=== PATIENT | female | born 1975 | race Caucasian/White ===

== ENCOUNTER 2017-11-08 05:39 | Inpatient (IN) | payer BC ==
[2017-11-08] MEDS: LACTATED RINGER'S 1,000 ML IV ×3 (07:26→20:18)
[2017-11-08] MEDS ORDERED: MIDAZOLAM 1 MG/ML 2 ML INJ (07:28)
[2017-11-08] MEDS ORDERED: HYDROmorphONE 1 MG/5 ML IV SYRINGE IV (07:30)
[2017-11-08] MEDS ORDERED: FENTAnyl 50 MCG/ML VIAL IV ×3 (07:30)
[2017-11-08] MEDS ORDERED: MEPERIDINE 25 MG INJ IV (07:30)
[2017-11-08] MEDS ORDERED: DIPHENHYDRAMINE 50 MG INJ IV (07:30)
[2017-11-08] MEDS ORDERED: PROCHLORPERAZINE 10 MG INJ IV (07:30)
[2017-11-08] MEDS ORDERED: CEFAZOLIN 1 GM INJ (07:42)
[2017-11-08] MEDS ORDERED: FAMOTIDINE 20 MG INJ (07:42)
[2017-11-08] MEDS ORDERED: ROCURONIUM 50 MG INJ (07:42)
[2017-11-08] MEDS ORDERED: DEXAMETHASONE 4 MG/ML 1 ML INJ (07:42)
[2017-11-08] MEDS ORDERED: ONDANSETRON 4 MG INJ (07:42)
[2017-11-08] MEDS ORDERED: LIDOCAINE 2% (SDV) 5 ML INJ (07:42)
[2017-11-08] MEDS ORDERED: PROPOFOL 20 ML (07:42)
[2017-11-08] MEDS ORDERED: SUCCINYLCHOLINE CHLORIDE 100 MG/5 ML SYG IV (07:42)
[2017-11-08] MEDS ORDERED: FENTAnyl 50 MCG/ML VIAL (07:48)
[2017-11-08] MEDS ORDERED: EPHEDrine SULFATE 50 MG/5 ML SYG (07:54)
[2017-11-08] MEDS ORDERED: SUGAMMADEX SODIUM 200 MG/2 ML VIAL IV (08:35)
[2017-11-08] MEDS ORDERED: ROPIVACAINE 0.5 % 30 ML VIAL (08:35)
[2017-11-08] MEDS ORDERED: HYDROmorphONE 2 MG/ML SYG (08:41)
[2017-11-08] MEDS ORDERED: ACETAMINOPHEN 1000MG/100ML IV 100 ML (08:45)
[2017-11-08] MEDS: ONDANSETRON 4 MG INJ IV ×2 (09:41→18:49)
[2017-11-08] MEDS: HYDROmorphONE 1 MG/5 ML IV SYRINGE IV ×2 (09:42→09:51)
[2017-11-08] MEDS ORDERED: HYDROmorphONE 1 MG/ML SYG IV (18:30)
[2017-11-08] MEDS ORDERED: HYDROmorphONE 2 MG/ML SYG IV (18:30)
[2017-11-08] MEDS ORDERED: IBUPROFEN 400 MG TAB (20:16)
[2017-11-08] MEDS: IBUPROFEN 800 MG TAB PO (20:29)
[2017-11-09] MEDS: LACTATED RINGER'S 1,000 ML IV ×3 (03:14→20:11)
[2017-11-09] MEDS: MAGNESIUM HYDROXIDE 30ML CUP PO ×2 (05:35→17:55)
[2017-11-09] MEDS: BISACODYL 10 MG SUPP PR ×2 (05:45→17:04)
[2017-11-09 06:55] LABS: ADD MAN DIFF? NO
[2017-11-09 07:01] LABS: BASOPHILS % 0.2 % (0.0-2.0); EOSINOPHILS % 0.1 % (0.0-7.0); HEMATOCRIT 33.5 % (37.0-47.0); HEMOGLOBIN 11.1 g/dl (12.0-16.0); LYMPHOCYTES % 9.3 % (15.0-51.0); MEAN CORPUSCULAR HEMOGLOBIN 29.9 pg (29.0-33.0); MEAN CORPUSCULAR HGB CONC 33.1 g/dl (32.0-37.0); MEAN CORPUSCULAR VOLUME 90.3 fl (82.0-101.0); MEAN PLATELET VOLUME 12.7 fl (7.4-10.4); MONOCYTE # 0.9 10^3/ul (0.3-0.9); MONOCYTES % 8.6 % (0.0-11.0); NEUTROPHIL # 8.5 10^3/ul (1.6-7.5); NEUTROPHILS % 81.5 % (39.0-77.0); PLATELET COUNT 251 10^3/UL (140-415); RED BLOOD COUNT 3.71 10^6/ul (4.20-5.40); RED CELL DISTRIBUTION WIDTH 12.1 % (11.5-14.5)
[2017-11-09 07:01] LABS: WHITE BLOOD COUNT 10.4 10^3/ul (4.8-10.8)
[2017-11-09 07:29] LABS: ALANINE AMINOTRANSFERASE 30 IU/L (13-69); ALBUMIN 2.9 g/dl (3.3-4.9); ALBUMIN/GLOBULIN RATIO 1.07; ALKALINE PHOSPHATASE 36 IU/L (42-121); ANION GAP 11 (8-16); ASPARTATE AMINO TRANSFERASE 22 IU/L (15-46); BILIRUBIN,INDIRECT 1.3 mg/dl (0-1.1); BILIRUBIN,TOTAL 1.3 mg/dl (0.2-1.3); BLOOD UREA NITROGEN 6 mg/dl (7-20); CALCIUM 8.4 mg/dl (8.4-10.2); CARBON DIOXIDE 27 mmol/L (21-31); CHLORIDE 105 mmol/L (97-110); GLUCOSE 109 mg/dl (70-220); POTASSIUM 3.7 mmol/L (3.5-5.1); SODIUM 139 mmol/L (135-144); TOTAL PROTEIN 5.6 g/dl (6.1-8.1)
[2017-11-09] MEDS ORDERED: HYDROCODONE/APAP (5/325) TAB PO ×2 (10:00)
[2017-11-09] MEDS: IBUPROFEN 800 MG TAB PO (17:55)
[2017-11-10] MEDS: LACTATED RINGER'S 1,000 ML IV ×2 (04:32→11:30)
[2017-11-10] MEDS: IBUPROFEN 800 MG TAB PO (04:34)
[2017-11-10 06:22] LABS: ADD MAN DIFF? NO
[2017-11-10 06:34] LABS: BASOPHILS % 0.6 % (0.0-2.0); EOSINOPHILS # 0.1 10^3/ul (0.0-0.5); EOSINOPHILS % 1.4 % (0.0-7.0); HEMATOCRIT 31.8 % (37.0-47.0); HEMOGLOBIN 10.1 g/dl (12.0-16.0); LYMPHOCYTES # 0.9 10^3/ul (0.8-2.9); LYMPHOCYTES % 13.4 % (15.0-51.0); MEAN CORPUSCULAR HEMOGLOBIN 29.1 pg (29.0-33.0); MEAN CORPUSCULAR HGB CONC 31.8 g/dl (32.0-37.0); MEAN CORPUSCULAR VOLUME 91.6 fl (82.0-101.0); MEAN PLATELET VOLUME 12.4 fl (7.4-10.4); MONOCYTE # 0.7 10^3/ul (0.3-0.9); MONOCYTES % 9.8 % (0.0-11.0); NEUTROPHILS % 74.5 % (39.0-77.0); PLATELET COUNT 229 10^3/UL (140-415); RED BLOOD COUNT 3.47 10^6/ul (4.20-5.40); RED CELL DISTRIBUTION WIDTH 12.3 % (11.5-14.5)
[2017-11-10 06:34] LABS: WHITE BLOOD COUNT 6.6 10^3/ul (4.8-10.8)
[2017-11-10] MEDS: MAGNESIUM HYDROXIDE 30ML CUP PO (06:34)
[2017-11-10] MEDS: BISACODYL 10 MG SUPP PR (06:34)
== END 2017-11-10 22:00 | disposition home or self-care (01) | DRG 743 ==
LOC: REC 05:39 → PP2 10:44
PROVIDERS: Obstetrics & Gynecology
PROC: 0USG0ZZ Reposition Vagina, Open Approach (ICD-10-PCS; principal; 2017-11-08 07:27)
PROC: 0UT90ZZ Resection of Uterus, Open Approach (ICD-10-PCS; 2017-11-08 07:27)
PROC: 0UT70ZZ Resection of Bilateral Fallopian Tubes, Open Approach (ICD-10-PCS; 2017-11-08 07:27)
DX: D25.1 Intramural leiomyoma of uterus (principal); N81.2 Incomplete uterovaginal prolapse; N81.10 Cystocele, unspecified
CPT/HCPCS: 80053; 84702; 84703; 85025; 86850; 86900; 86901; 87086; 88305